=== PATIENT | male | born 1980 ===

== ENCOUNTER 2019-06-06 04:29 | Emergency (ER) | payer SELFPAY ==
[~2019-06-06] VITALS: Ht 175.3 cm; Wt 95.2 kg
[2019-06-06] MEDS ORDERED: GABA100 (04:47)
[2019-06-06] MEDS ORDERED: IBUP400 (04:47)
[2019-06-06] MEDS ORDERED: ACET500 (04:47)
[2019-06-06] MEDS ORDERED: Norco 10-325 T1 EACH PO (05:19)
[2019-06-06] MEDS ORDERED: ONDA4ODT MM (05:19)
[2019-06-06] MEDS ORDERED: Prednisone20 MG PO (05:19)
== END 2019-06-06 05:37 | disposition home or self-care (01) ==
LOC: ER 04:29
DX: G56.03 Carpal tunnel syndrome, bilateral upper limbs (principal); Z88.0 Allergy status to penicillin; Z88.5 Allergy status to narcotic agent; Z79.899 Other long term (current) drug therapy; Z79.52 Long term (current) use of systemic steroids
CPT/HCPCS: 99283